=== PATIENT | male | born 1990 | race African-American/Black ===

== ENCOUNTER 2017-03-11 16:34 | Emergency (ER) | payer SELFPAY ==
[~2017-03-11] VITALS: Ht 175.3 cm; Wt 95.3 kg
[2017-03-11 17:00] VITALS: BP 132/85
[2017-03-11] MEDS ORDERED: KETOROLAC 60 MG/2 ML INJ. IM ONE (17:15)
--- NOTE | 2017-03-11 17:20 | PHYS DOC ---
Past Medical History Past Medical History: No Pertinent History Past Surgical History: No Surgical History Alcohol Use: None Drug Use: None Adult General Chief Complaint Chief Complaint: HEADACHE HPI HPI Patient is a 26 year old male presents to the emergency department with a four- day history of headache, nausea without vomiting. He states he has a fever but has not measured fever. He states he is taking foods and fluids without vomiting or diarrhea. He denies dizziness, neck pain, chest pain Review of Systems Review of Systems Constitutional: Fever without chills Eyes: Denies change in visual acuity, redness, or eye pain [] HENT: Denies nasal congestion or sore throat [] Respiratory: Denies cough or shortness of breath [] Cardiovascular: No additional information not addressed in HPI [] GI: Denies abdominal pain, nausea, vomiting, bloody stools or diarrhea [] : Denies dysuria or hematuria [] Musculoskeletal: Denies back pain or joint pain [] Integument: Denies rash or skin lesions [] Neurologic: Headache without focal weakness or sensory change Endocrine: Denies polyuria or polydipsia [] All other systems were reviewed and found to be within normal limits, except as documented in this note. Current Medications Current Medications Current Medications Medications (Trade) Dose Ordered Sig/Lionel Start Time Stop Time Status Last Admin Dose Admin Ketorolac Tromethamine (Toradol Im) 60 mg 1X ONCE 03/11/17 17:15 03/11/17 17:16 DC Allergies Allergies Allergies Coded Allergies Type Severity Reaction Last Updated Verified No Known Drug Allergies 02/25/15 No Physical Exam Physical Exam Constitutional: Well developed, well nourished, no acute distress, non-toxic appearance. [] HENT: Normocephalic, atraumatic, bilateral external ears normal, oropharynx moist, posterior pharynx injected, no oral exudates, nose normal. [] Eyes: PERRLA, EOMI, conjunctiva normal, no discharge. [] Neck: Normal range of motion, no tenderness, supple without lymphadenopathy, no stridor. No meningeal signs[] Cardiovascular:Heart rate regular rhythm, no murmur [] Lungs & Thorax: Bilateral breath sounds clear to auscultation [] Abdomen: Bowel sounds normal, soft, no tenderness, no masses, no pulsatile masses. [] Skin: Warm, dry, no erythema, no rash. [] Back: No tenderness, no CVA tenderness. [] Extremities: No tenderness, no cyanosis, no clubbing, ROM intact, no edema. [] Neurologic: Alert and oriented X 3, normal motor function, normal sensory function, no focal deficits noted. [] Psychologic: Affect normal, judgement normal, mood normal. [] Current Patient Data Vital Signs Vital Signs Date Time Temp Pulse Resp B/P (MAP) Pulse Ox O2 Delivery O2 Flow Rate FiO2 03/11/17 17:00 99.7 82 18 100 Room Air 99.7 Lab Values Laboratory Tests Test 03/11/17 17:05 Influenza Type A Antigen Negative (NEGATIVE) Influenza Type B Antigen Negative (NEGATIVE) EKG EKG [] Radiology/Procedures Radiology/Procedures [] Course & Med Decision Making Course & Med Decision Making Patient had relief of headache from Toradol injection 60 mg IM Influenza negative Pertinent Labs and Imaging studies reviewed. (See chart for details) []Patient is concerned that his viral illness may contaminate his unborn child. We had a long discussion regarding exposure transmission of viral illnesses. Patient is advised to use [id number] cough and cold medications for symptom management. Return to the emergency department his symptoms or concerns or worsening of current condition. Dragon Disclaimer Dragon Disclaimer This electronic medical record was generated, in whole or in part, using a voice recognition dictation system. Departure Departure Impression: Primary Impression: Viral syndrome Disposition: 01 HOME, SELF-CARE Condition: STABLE Referrals: UNKNOWN PCP NAME (PCP) [facility] Patient Instructions: Viral Syndrome Scripts Naproxen (NAPROSYN) 500 Mg Tablet 500 MG PO BID Y for fever, #20 TAB Prov: JAIRO ROJAS APRN 03/11/17 Diphenhydramine Hcl (BENADRYL) 25 Mg Capsule 2 CAP PO Q6H Y for INSOMNIA, #30 CAP 1 Refill Prov: JAIRO ROJAS APRN 03/11/17 JAIRO ROJAS APRN Mar 11, 2017 17:20
[2017-03-11 17:32] LABS: OBC FLU VALID
[2017-03-11] MEDS ORDERED: DIPH25CA58 PO (17:41)
[2017-03-11] MEDS ORDERED: NAPR-683 PO (17:41)
== END 2017-03-11 17:51 | disposition home or self-care (01) ==
LOC: ER 16:34
DX: B34.9 Viral infection, unspecified (principal)
CPT/HCPCS: 87804; 96372; 99284; J1885